=== PATIENT | male | born 1950 | race Caucasian/White ===

== ENCOUNTER 2023-08-05 09:02 | Outpatient (CLI) | payer MEDICARE, OTHER ==
[2023-08-05 10:02] LABS: #Basophils 0.04 10x3/uL (0.0-0.2); #Eosinphils 0.13 10x3/uL (0.0-0.5); #Monocytes 0.51 10x3/uL (0.0-1.1); #Neutrophils 3.21 10x3/uL (1.5-8.4); %Basophils 0.8 % (0.0-2.0); %Eosinophils 2.7 % (0.0-6.0); %Lymphocytes 19.1 % (18.0-47.0); %Monocytes 10.6 % (0.0-10.0); %Neutrophils 66.6 % (40.0-75.0); Hematocrit 40.9 % (38.8-50.0); Hemoglobin 14.1 g/dL (13.5-17.5); Mean Corpuscular HGB CONC 34.5 g/dL (32.0-36.0); Mean Corpuscular Hemoglobin 27.5 pg (27.0-33.0); Mean Corpuscular Volume 79.7 fL (81.2-95.1); Mean Platelet Volume 10.5 fL (7.4-10.4); Platelet Count 226 10x3/uL (150-450); RBC Distribution Width 13.4 % (11.5-14.5); Red Blood Cell (RBC) Count 5.13 10x6/uL (4.32-5.72); White Blood Cell (WBC) Count 4.8 10x3/uL (3.5-10.5)
[2023-08-05 10:24] LABS: ALT (SGPT) 20 U/L (8-55); AST (SGOT) 21 U/L (5-34); Albumin 3.7 g/dL (3.4-4.8); Alkaline Phosphatase 48 U/L (40-110); Anion Gap 12 mmol/L (10-20); BUN (Urea Nitrogen) 20 mg/dL (8.4-25.7); Bilirubin, Total 0.7 mg/dL (0.2-1.2); Calc. Creatinine Clearance 0 mL/min (70-130); Calcium 9.1 mg/dL (7.8-10.44); Carbon Dioxide 29 mmol/L (23-31); Chloride 104 mmol/L (98-107); Estimated GFR 72; Globulin 3.3 g/dL (2.4-3.5); Glucose 108 mg/dL (83-110); Potassium 4.4 mmol/L (3.5-5.1); Sodium 141 mmol/L (136-145)
== END 2023-08-05 09:03 | disposition home or self-care (01) ==
LOC: LABBT 09:02
PROVIDERS: ATTEND Surgery
DX: Z01.812 Encounter for preprocedural laboratory examination (principal); K40.20 Bilateral inguinal hernia, without obstruction or gangrene, not specified as recurrent
CPT/HCPCS: 80053; 85025

== ENCOUNTER 2023-08-08 09:37 | Day surgery (SDC) | payer MEDICARE ==
[2023-08-05 09:38] VITALS: BMI 26.7
[2023-08-08] MEDS ORDERED: EPINEPHrine 1 MG/ML VIAL ONE (10:45)
[2023-08-08] MEDS ORDERED: Bupivacaine 0.25% HCL 30 ML VIAL ONE (10:45)
[2023-08-08] MEDS ORDERED: PHENYLEPHRINE-NS 100 MCG/ML 10 ML SYRINGE ONE (11:33)
[2023-08-08] MEDS ORDERED: Lidocaine 2% PF 5 ML VIAL ONE (11:33)
[2023-08-08] MEDS ORDERED: Rocuronium Bromide 10 MG/ML (10ML VIAL) ONE (11:33)
[2023-08-08] MEDS ORDERED: Ondansetron PF 4 MG/2 ML Vial ONE (11:33)
[2023-08-08] MEDS ORDERED: fentaNYL PF 100 MCG/2 ML SYRINGE ONE ×2 (11:33→13:29)
[2023-08-08] MEDS ORDERED: Dexamethasone 4 mg/ml Vial ONE (11:33)
[2023-08-08] MEDS ORDERED: PROPOFOL 20 ML ONE (11:34)
[2023-08-08] MEDS ORDERED: Lidocaine 2% PF 100 mg/5 ml Syringe ONE (11:40)
[2023-08-08] MEDS ORDERED: SUCCINYLCHOLINE/SOD CL,ISO/PF 200 MG/10 ML SYRINGE FS ONE (11:48)
[2023-08-08] MEDS ORDERED: Sodium Chloride 0.9% 100 ML ONE (11:48)
[2023-08-08] MEDS ORDERED: CEFAZOLIN 2 GM VIAL ONE (11:48)
[2023-08-08] MEDS ORDERED: SUGAMMADEX SODIUM 200 MG/2 ML VIAL ONE (13:16)
[2023-08-08] MEDS ORDERED: fentaNYL 50 mcg/mL 1 mL Vial ONE (14:08)
== END 2023-08-08 15:20 | disposition home or self-care (01) ==
LOC: SDC 09:37
PROVIDERS: ATTEND Surgery
PROC: 0YQA4ZZ Repair Bilateral Inguinal Region, Percutaneous Endoscopic Approach (ICD-10-PCS; principal; 2023-08-08)
DX: K40.20 Bilateral inguinal hernia, without obstruction or gangrene, not specified as recurrent (principal); J45.909 Unspecified asthma, uncomplicated; E78.00 Pure hypercholesterolemia, unspecified; I10 Essential (primary) hypertension; E07.9 Disorder of thyroid, unspecified; Z79.899 Other long term (current) drug therapy; Z79.890 Hormone replacement therapy; Z88.5 Allergy status to narcotic agent; Z91.013 Allergy to seafood; Z90.89 Acquired absence of other organs; Z98.890 Other specified postprocedural states
CPT/HCPCS: 49650; A4314; C1781 ×2; J0171; J0665; J1100; J2001; J2405; J2704; J3010; J3490

== ENCOUNTER 2024-08-24 05:59 | Inpatient (IN) | payer MEDICARE ==
[2024-08-24] MEDS ORDERED: Nitroglycerin 2% Ointment 1 INCH/1 GM Packet ONE (06:41)
[2024-08-24 06:47] LABS: #Basophils 0.03 10x3/uL (0.0-0.2); #Eosinophils 0.11 10x3/uL (0.0-0.7); #Monocytes 0.40 10x3/uL (0.11-0.59); #Neutrophils 3.17 10x3/uL (1.40-6.50); %Basophils 0.6 % (0.0-1.0); %Eosinophils 2.3 % (0.0-10.0); %Lymphocytes 21.5 % (21.0-51.0); %Monocytes 8.4 % (0.0-10.0); %Neutrophils 67.0 % (42.0-75.0); Hematocrit 40.7 % (42.0-52.0); Hemoglobin 13.9 g/dL (14.0-18.0); Mean Corpuscular Hemoglobin 26.8 pg (27.0-31.0); Mean Corpuscular Volume 78.4 fL (78.0-98.0); Platelet Count 211 10x3/uL (130-400); Red Blood Cell (RBC) Count 5.19 mill/uL (4.70-6.10); White Blood Cell (WBC) Count 4.74 10x3/uL (4.8-10.8)
[2024-08-24 07:02] LABS: ALT (SGPT) 14 U/L (Less than 45); AST (SGOT) 23 U/L (11-34); Albumin 4.2 g/dL (3.1-4.5); Alkaline Phosphatase 50 U/L (40-110); Anion Gap 10 mmol/L (10-20); BUN (Urea Nitrogen) 26 mg/dL (8.4-25.7); Bilirubin, Total 0.8 mg/dL (0.3-1.2); Calc. Creatinine Clearance 0 mL/min (70-130); Calcium 8.9 mg/dL (7.8-10.44); Carbon Dioxide 25 mmol/L (23-31); Chloride 107 mmol/L (98-107); Globulin 3.6 g/dL (2.4-3.5); Glucose 135 mg/dL (83-110); Potassium 3.6 mmol/L (3.5-5.1); Sodium 138 mmol/L (136-145)
[2024-08-24 07:05] LABS: Troponin I 0.010 ng/mL (< 0.028)
[2024-08-24 09:05] LABS: Magnesium 1.6 mg/dL (1.6-2.6)
[2024-08-24] MEDS ORDERED: Ondansetron PF 4 MG/2 ML Vial IVP PRN (09:30)
[2024-08-24] MEDS ORDERED: Acetaminophen 325 MG TAB PO PRN ×2 (09:30→10:04)
[2024-08-24] MEDS ORDERED: Senokot S 8.6-50 MG TAB PO PRN (10:04)
[2024-08-24] MEDS ORDERED: Calcium Carbonate 500 MG ChewTAB PO PRN (10:04)
[2024-08-24 10:47] LABS: Troponin I 1.279 ng/mL (< 0.028)
[2024-08-24] MEDS: Aspirin 81 mg Enteric Coated Tablet PO SCH ×2 (11:12→14:07)
[2024-08-24] MEDS ORDERED: Nitroglycerin 50 MG/250 ML BOT 250 ML IVPB SCH (11:15)
[2024-08-24] MEDS: Metoprolol Succinate XL 100 MG ER.TAB PO SCH (11:20)
[2024-08-24] MEDS: Magnesium Sulfate In Water 4 GM in Premix 1 BAG IVPB SCH (11:21)
[2024-08-24] MEDS: NS 0.9% w/ 20 MEQ KCL 1,000 ML/1,000 ML BAG IV SCH (11:21)
[2024-08-24] MEDS ORDERED: Heparin 10,000 UNITS/ 10 ML VIAL SLOW IVP SCH (11:30)
[2024-08-24] MEDS: Nitroglycerin 2% Ointment 1 INCH/1 GM Packet TOP SCH (11:41)
[2024-08-24] MEDS: Nitroglycerin 0.4 MG TAB (25 Tab Bottle) SL PRN (11:46)
[2024-08-24] MEDS ORDERED: Communication Order-Pharmacy FS SCH (13:15)
[2024-08-24 13:30] LABS: Troponin I 8.261 ng/mL (< 0.028)
[2024-08-24] MEDS ORDERED: Nitroglycerin 2% Ointment 1 INCH/1 GM Packet TOP SCH (14:00)
[2024-08-24] MEDS: Nitroglycerin 2% Ointment 1 INCH/1 GM Packet ONE (14:07)
[2024-08-24] MEDS: Nitroglycerin 50 MG/250 ML BOT 250 ML ONE (14:08)
[2024-08-24] MEDS: Enoxaparin 100 MG (1 mL) SYRINGE SC SCH (14:08)
[2024-08-24] MEDS: diphenhydrAMINE 25 MG CAP PO SCH (17:14)
[2024-08-24] MEDS: predniSONE 20 MG TAB PO SCH (17:16)
[2024-08-24] MEDS: Cholecalciferol 1,000 UNITS (25 MCG) TAB PO SCH (20:42)
[2024-08-24] MEDS: Ezetimibe 10 MG TAB PO SCH (20:42)
[2024-08-24] MEDS: Rosuvastatin 20 MG TAB PO SCH (20:43)
[2024-08-24] MEDS ORDERED: Ramipril 5 MG CAP PO SCH (21:00)
[2024-08-25 02:56] LABS: Hematocrit 40.1 % (42.0-52.0); Hemoglobin 13.4 g/dL (14.0-18.0); Platelet Count 202 10x3/uL (130-400)
[2024-08-25 03:26] LABS: Critical Call Chem Troponin I RESULT DECREASING; Troponin I 5.619 ng/mL (< 0.028)
[2024-08-25 04:44] LABS: Cardiac Risk 2.6 (Less than 4.5); Cholesterol 113.0 mg/dL (< 200 Desired); HDL Cholesterol 43.0 mg/dL (>60 Neg Risk); LDL Cholesterol, Calculated 57.0 mg/dL; Triglycerides 63.0 mg/dL (Less than 150)
[2024-08-25] MEDS: Aspirin 81 mg Enteric Coated Tablet PO SCH (06:26)
[2024-08-25] MEDS: Metoprolol Succinate XL 100 MG ER.TAB PO SCH (06:26)
[2024-08-25] MEDS: Levothyroxine 150 MCG TAB PO SCH (06:26)
[2024-08-25] MEDS ORDERED: Heparin 10,000 UNITS/ 10 ML VIAL ONE (06:34)
[2024-08-25] MEDS ORDERED: Nitroglycerin 50 MG/250 ML BOT 0 ML ONE (06:35)
[2024-08-25 06:49] VITALS: BMI 25.7
[2024-08-25] MEDS ORDERED: Lidocaine 1% (PF) 30 ML VIAL ONE (07:29)
[2024-08-25] MEDS ORDERED: Nitroglycerin 0.4 MG TAB (25 Tab Bottle) SL PRN (08:39)
[2024-08-25 08:55] LABS: #Basophils Less than 0.03 10x3/uL (0.0-0.2); #Eosinophils Less than 0.03 10x3/uL (0.0-0.7); #Monocytes 0.25 10x3/uL (0.11-0.59); #Neutrophils 5.02 10x3/uL (1.40-6.50); %Basophils 0.4 % (0.0-1.0); %Eosinophils 0.2 % (0.0-10.0); %Lymphocytes 6.7 % (21.0-51.0); %Monocytes 4.4 % (0.0-10.0); %Neutrophils 88.1 % (42.0-75.0); Hematocrit 40.6 % (42.0-52.0); Hemoglobin 14.0 g/dL (14.0-18.0); Mean Corpuscular Hemoglobin 27.0 pg (27.0-31.0); Mean Corpuscular Volume 78.2 fL (78.0-98.0); Platelet Count 202 10x3/uL (130-400); Red Blood Cell (RBC) Count 5.19 mill/uL (4.70-6.10); White Blood Cell (WBC) Count 5.69 10x3/uL (4.8-10.8)
[2024-08-25 09:20] LABS: Anion Gap 12 mmol/L (10-20); BUN (Urea Nitrogen) 15 mg/dL (8.4-25.7); Calc. Creatinine Clearance 96 mL/min (70-130); Calcium 8.9 mg/dL (7.8-10.44); Carbon Dioxide 24 mmol/L (23-31); Chloride 103 mmol/L (98-107); Glucose 119 mg/dL (83-110); Magnesium 1.9 mg/dL (1.6-2.6); Potassium 4.4 mmol/L (3.5-5.1); Sodium 135 mmol/L (136-145)
[2024-08-25] MEDS ORDERED: Iopamidol 370 76% 100 ML VIAL ONE (10:05)
[2024-08-26 04:53] LABS: #Basophils 0.03 10x3/uL (0.0-0.2); #Eosinophils Less than 0.03 10x3/uL (0.0-0.7); #Monocytes 0.81 10x3/uL (0.11-0.59); #Neutrophils 7.75 10x3/uL (1.40-6.50); %Basophils 0.3 % (0.0-1.0); %Eosinophils 0.2 % (0.0-10.0); %Lymphocytes 10.3 % (21.0-51.0); %Monocytes 8.4 % (0.0-10.0); %Neutrophils 80.5 % (42.0-75.0); Hematocrit 44.0 % (42.0-52.0); Hemoglobin 14.9 g/dL (14.0-18.0); Mean Corpuscular Hemoglobin 26.7 pg (27.0-31.0); Mean Corpuscular Volume 78.9 fL (78.0-98.0); Platelet Count 243 10x3/uL (130-400); Red Blood Cell (RBC) Count 5.58 mill/uL (4.70-6.10); White Blood Cell (WBC) Count 9.63 10x3/uL (4.8-10.8)
[2024-08-26 06:14] LABS: Anion Gap 12 mmol/L (10-20); BUN (Urea Nitrogen) 20 mg/dL (8.4-25.7); Calc. Creatinine Clearance 88 mL/min (70-130); Calcium 9.5 mg/dL (7.8-10.44); Carbon Dioxide 28 mmol/L (23-31); Chloride 101 mmol/L (98-107); Glucose 114 mg/dL (83-110); Magnesium 1.8 mg/dL (1.6-2.6); Potassium 4.0 mmol/L (3.5-5.1); Sodium 137 mmol/L (136-145)
[2024-08-26] MEDS: Pantoprazole 40 MG DR.TAB PO SCH (08:55)
[2024-08-26] MEDS: Magnesium Oxide 400 MG TAB PO SCH (08:55)
[2024-08-26] MEDS: Ezetimibe 10 MG TAB PO SCH (08:55)
[2024-08-26] MEDS: Ramipril 5 MG CAP PO SCH (19:48)
[2024-08-27 03:55] LABS: Hematocrit 44.9 % (42.0-52.0); Hemoglobin 15.0 g/dL (14.0-18.0); Platelet Count 228 10x3/uL (130-400)
[2024-08-27 04:09] LABS: Anion Gap 13 mmol/L (10-20); BUN (Urea Nitrogen) 25 mg/dL (8.4-25.7); Calc. Creatinine Clearance 71 mL/min (70-130); Calcium 9.5 mg/dL (7.8-10.44); Carbon Dioxide 29 mmol/L (23-31); Chloride 100 mmol/L (98-107); Glucose 98 mg/dL (83-110); Potassium 4.2 mmol/L (3.5-5.1); Sodium 138 mmol/L (136-145)
[2024-08-27 10:39] VITALS: BP 108/62; TEMP 97.5
== END 2024-08-27 10:58 | disposition home or self-care (01) | DRG 281 ==
LOC: ERS 05:59 → ERHOLD 08:11 → OBS 09:23 → OBSVTOIN 10:53 → CCU 12:13 → OBS 08-25 16:14
PROVIDERS: ADMIT Internal Medicine; ATTEND Emergency Medicine
PROC: 4A023N7 Measurement of Cardiac Sampling and Pressure, Left Heart, Percutaneous Approach (ICD-10-PCS; principal; 2024-08-25)
PROC: B2151ZZ Fluoroscopy of Left Heart using Low Osmolar Contrast (ICD-10-PCS; 2024-08-25)
PROC: B2111ZZ Fluoroscopy of Multiple Coronary Arteries using Low Osmolar Contrast (ICD-10-PCS; 2024-08-25)
PROC: 3E033XZ Introduction of Vasopressor into Peripheral Vein, Percutaneous Approach (ICD-10-PCS; 2024-08-25)
DX: I21.4 Non-ST elevation (NSTEMI) myocardial infarction (principal); C15.9 Malignant neoplasm of esophagus, unspecified; E87.1 Hypo-osmolality and hyponatremia; I12.9 Hypertensive chronic kidney disease with stage 1 through stage 4 chronic kidney disease, or unspecified chronic kidney disease; N18.2 Chronic kidney disease, stage 2 (mild); D63.1 Anemia in chronic kidney disease; E83.42 Hypomagnesemia; E03.9 Hypothyroidism, unspecified; I35.0 Nonrheumatic aortic (valve) stenosis; E78.5 Hyperlipidemia, unspecified; I25.10 Atherosclerotic heart disease of native coronary artery without angina pectoris; Z95.1 Presence of aortocoronary bypass graft; Z88.5 Allergy status to narcotic agent; Z91.013 Allergy to seafood; Z79.82 Long term (current) use of aspirin; Z79.899 Other long term (current) drug therapy; Z79.890 Hormone replacement therapy; Z98.890 Other specified postprocedural states; Z90.89 Acquired absence of other organs
CPT/HCPCS: 36415; 71045; 80048; 80053; 80061; 83735; 84484; 85014; 85018; 85025; 85049; 85730; 93005; 93010; 93306; 93459; 93798; 99152; 99153; C1769; C1887; J0171; J1644; J1650; J2250; J2272; J3010; J3475; J3480; J7512; Q9967